=== PATIENT | female | born 1995 | race Caucasian/White ===

== ENCOUNTER 2017-03-27 04:39 | Emergency (ER) | payer OTHER ==
[~2017-03-27] VITALS: Ht 157.5 cm; Wt 59.0 kg
[~2017-03-27 04:39] MED LIST: BACTRIM DS TABL1 TA1 PO; HYDROCODON-ACE1 EAC7 PO; KEFLEX500 M2 PO; MIDOL220 MG; MONODOX100 MG PO; MOTRIN600 M1 PO; NO MEDICATIONS; PRENATAL VITAMINS PO; PYRIDIUM PO; ZOFRAN ODT4 MG PO
== END 2017-03-27 06:40 | disposition home or self-care (01) ==
LOC: SED 04:39
DX: J02.9 Acute pharyngitis, unspecified (principal); N83.209 Unspecified ovarian cyst, unspecified side; F17.200 Nicotine dependence, unspecified, uncomplicated
CPT/HCPCS: 87651; 99283

== ENCOUNTER 2017-05-04 00:56 | Emergency (ER) | payer OTHER ==
[~2017-05-04] VITALS: Ht 157.5 cm; Wt 59.0 kg
[2017-05-04] MEDS ORDERED: NO MEDICATIONS (01:06)
== END 2017-05-04 02:08 | disposition home or self-care (01) ==
LOC: SED 00:56
DX: J02.0 Streptococcal pharyngitis (principal); Z88.1 Allergy status to other antibiotic agents
CPT/HCPCS: 87880; 99283